=== PATIENT | female | born 2000 | race Two or more races ===

== ENCOUNTER 2025-03-31 08:38 | Emergency (ER) | payer OTHER ==
[~2025-03-31] VITALS: Ht 170.2 cm; Wt 70.3 kg
[2025-03-31] MEDS ORDERED: ACETAMINOPHEN ES 500 MG TABLET ONE (09:14)
[2025-03-31] MEDS: ACETAMINOPHEN ES 500 MG TABLET PO ONE (09:16)
[2025-03-31 10:39] VITALS: BP 128/84; TEMP 98.5; O2SAT 100
== END 2025-03-31 10:39 | disposition home or self-care (01) ==
LOC: ER 08:54
DX: S13.4XXA Sprain of ligaments of cervical spine, initial encounter (principal); S60.211A Contusion of right wrist, initial encounter; V49.88XA Car occupant (driver) (passenger) injured in other specified transport accidents, initial encounter; Y93.89 Activity, other specified; Y92.89 Other specified places as the place of occurrence of the external cause; Y99.8 Other external cause status
CPT/HCPCS: 71045-TC; 73110; 84703-TC